=== PATIENT | female | born 1995 | race Caucasian/White ===

== ENCOUNTER 2020-01-21 17:06 | Inpatient (IN) ==
[2020-01-21 18:23] LABS: Urine Appearance Cloudy; Urine Bilirubin Negative (Negative); Urine Blood Negative (Negative); Urine Color Yellow; Urine Glucose Negative (Negative); Urine Ketones Negative (Negative); Urine Nitrite Negative (Negative); Urine Protein Negative (Negative); Urine Specific Gravity 1.021 (1.010-1.030); Urine Urobilinogen Negative (Negative)
[2020-01-21 18:32] LABS: Urine Benzodiazepine Screen None Detected (None Detect); Urine Cannabinoids Screen None Detected (None Detect); Urine Opiates Screen None Detected (None Detect)
[2020-01-21 18:35] LABS: ABS Eosinophils 0.1 10^3/ul (0-0.6); ABS Lymphocytes 2.8 10^3/ul (1.0-4.8); ABS Monocytes 0.6 10^3/ul (0-0.8); ABS Neutrophils 7.8 10^3/ul (1.5-7.7); Eosinophil % 1.1 %; Hematocrit 38 % (35-47); Lymphocyte % 24.8 %; Mean Corpuscular HGB Conc 35 g/dL (31-36); Mean Corpuscular Hemoglobin 31 pg (27-31); Mean Corpuscular Volume 88 fL (80-97); Mean Platelet Volume 7.4 fL (7.4-10.4); Platelet Count 324 10^3/uL (150-450); Red Blood Count 4.25 10^6 /uL (3.70-4.87); Red Cell Distribution Width 13 % (10-15); White Blood Count 11.4 10^3/uL (3.5-10.8)
[2020-01-21 18:52] LABS: ALT 19 U/L (7-52); AST 17 U/L (13-39); Albumin 4.6 g/dL (3.2-5.2); Albumin/Globulin Ratio 1.7 (1-3); Alkaline Phosphatase 70 U/L (34-104); Anion Gap 7 mmol/L (2-11); BUN/Creatinine Ratio 20.8 (8-20); Blood Urea Nitrogen 16 mg/dL (6-24); CO2 Carbon Dioxide 27 mmol/L (22-32); Calcium 9.6 mg/dL (8.6-10.3); Chloride 105 mmol/L (101-111); EGFR African American 109.6 (>60); EGFR Non-African American 90.6 (>60); Globulin 2.7 g/dL (2-4); Glucose 89 mg/dL (70-100); Potassium 3.9 mmol/L (3.5-5.0); Sodium 139 mmol/L (135-145); Total Protein 7.3 g/dL (6.4-8.9)
[2020-01-21 18:59] LABS: HCG Pregnancy < 0.60 mIU/mL
[2020-01-21 19:22] LABS: Acetaminophen < 15 mcg/mL; Alcohol, S < 10 mg/dL (<10); Salicylate < 2.50 mg/dL (<30)
[2020-01-21 19:33] LABS: TSH Ultra Thyroid Stim Horm 2.51 mcIU/mL (0.34-5.60)
[2020-01-21] MEDS ORDERED: Al Hydrox/Mg Hydrox/Simet LIQ 30 ML UDC PO PRN (21:13)
[2020-01-22 08:02] LABS: HDL Cholesterol 62.6 mg/dL
[2020-01-22] MEDS: Vitamin THERAPEUTIC TAB PO SCH (08:24)
[2020-01-22] MEDS: Lisdexamfetamine 10 mg CAP(NF) PO SCH (08:24)
[2020-01-22] MEDS: VILAZODONE 10 MG PO SCH (08:25)
[2020-01-23] MEDS: VILAZODONE 10 MG PO SCH (08:41)
[2020-01-23] MEDS: Vitamin THERAPEUTIC TAB PO SCH (08:41)
[2020-01-23] MEDS: Lisdexamfetamine 10 mg CAP(NF) PO SCH (08:42)
[2020-01-24] MEDS: Lisdexamfetamine 10 mg CAP(NF) PO SCH (08:27)
[2020-01-24] MEDS: Vitamin THERAPEUTIC TAB PO SCH (08:28)
[2020-01-24] MEDS: VILAZODONE 10 MG PO SCH (08:29)
[2020-01-24 10:38] VITALS: BP 133/77
== END 2020-01-24 14:46 | disposition home or self-care (01) | DRG 755 ==
LOC: ED 17:06 → BSU 21:13
PROVIDERS: ADMIT Psychiatry & Neurology Psychiatry; ATTEND Psychiatry & Neurology Psychiatry